=== PATIENT | male | born 2005 | race Caucasian/White ===

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

== ENCOUNTER 2024-03-23 16:26 | Emergency (ER) | payer OTHER ==
[~2024-03-23] VITALS: Wt 108.9 kg
== END 2024-03-23 17:40 | disposition home or self-care (01) ==
LOC: ED 16:26
DX: S93.601A Unspecified sprain of right foot, initial encounter (principal); J45.909 Unspecified asthma, uncomplicated; V89.2XXA Person injured in unspecified motor-vehicle accident, traffic, initial encounter; Y93.89 Activity, other specified; Y92.89 Other specified places as the place of occurrence of the external cause; Y99.8 Other external cause status